=== PATIENT | female | born 1940 | race Caucasian/White ===

== ENCOUNTER 2016-12-06 01:45 | Observation (INO) ==
--- NOTE | 2016-12-06 01:54 | ED EKG INTERP ---
This chart was entered by Priscilla Lackey Scribe, acting as scribe for Wong Turner MD. EKG Interpretation - EKG Time of EKG reading by physician:: 01:46 EKG Read and Signed by:: Wong Turner EKG Interpretation (*Must complete 3 of following elements*): Abnormal Rate: 79 Rhythm: normal sinus rhythm Rock: normal QRS: normal NM Interval: normal ST Wave: non-specific ST changes (ST & T wave abnormality, consider inferolateral ischemia) Comments: anterior infarct, age undetermined Attestation - Physician/ REBECCA Attestation Patient care was provided by Advanced Practice Provider:: No The physician spent face to face time with patient:: Yes Advanced Practice Provider documentation review:: Supervising physician onsite and consulted in the evaluation and care of this patient. The physician did have a face to face encounter with the patient. This chart was documented by the indicated scribe, (Priscilla Lackey Scribe) and accurately reflects the services I performed and decisions made by me, Wong Turner MD, as attested by the provider's signature.
--- NOTE | 2016-12-06 02:00 | EKG Report ---
Test Performed on : 12/06/2016 01:46:42 AM Test Reason : CHEST PAIN Blood Pressure : / mmHG Vent. Rate : 079 BPM Atrial Rate : 079 BPM P-R Int : 170 ms QRS Dur : 098 ms QT Int : 398 ms P-R-T Axes : 065 031 179 degrees QTc Int : 456 ms Normal sinus rhythm. Anterior infarct (cited on or before 10-JUL-2015) ST \T\ T wave abnormality, consider inferolateral ischemia Abnormal ECG When compared with ECG of 10-JUL-2015 02:28, ST now depressed in Lateral leads Unconfirmed Result
[2016-12-06 02:16] LABS: BASO% 0.2 % (0.0-0.8); EOS# 0.17 X1000 (0.0-0.7); EOS% 3.8 % (0.0-10.0); HEMATOCRIT 26.5 % (37.0-47.0); HEMOGLOBIN 8.8 g/dL (12.0-16.0); IMM GRAN# 0.02 X1000 (0.0-0.04); IMM GRAN% 0.4 % (0.0-0.5); LYMPH# 1.08 X1000 (1.2-3.4); LYMPH% 24.2 % (20.5-51.1); MANUAL DIFF NEEDED? NO; MCH 30.7 PG (27-31); MCHC 33.2 g/dL (33-37); MCV 92.3 FL (81-99); MONO# 0.27 X1000 (0.11-0.59); MPV 10.5 FL (7.4-10.4); NEUT% 65.4 % (42.2-75.2); PLT 195 X1000 (130-400); RBC 2.87 XMIL (4.2-5.4)
[2016-12-06 02:33] LABS: ALBUMIN 4.3 g/dL (3.5-5.0); MAGNESIUM 1.5 mg/dL (1.5-2.7); POTASSIUM 4.6 mmol/L (3.5-5.1); TOTAL BILIRUBIN 0.4 mg/dL (0.20-1.00); TOTAL PROTEIN 7.2 g/dL (6.3-8.3)
[2016-12-06 02:42] LABS: INR 0.91 (0.86-1.15)
[2016-12-06 02:43] LABS: PTT PL 23.5 Seconds (22.6-43.9)
--- NOTE | 2016-12-06 02:48 | PROVIDER DOCUMENTATION ---
This chart was entered by Pirscilla Lackey Scribe, acting as scribe for Wong Turner MD. HPI-Chest Pain - General Chief Complaint: Chest Pain Stated Complaint: chest pain Time Seen by Provider: 12/06/16 01:46 Source: patient, EMS Allergies/Adverse Reactions: Patient Allergies Allergy/AdvReac Type Severity Reaction Status Date / Time No Known Allergies Allergy Verified 12/06/16 02:02 Home Medications: Home Medication List Medication Instructions Recorded Confirmed Last Taken Type Metformin E.r. [Glucophage Xr] 500 mg PO BID 07/10/15 12/06/16 Unknown History ATORVAstatin [Lipitor] 1 tab PO DAILY 12/06/16 12/06/16 Unknown History Aspirin [Aspirin EC] 81 mg PO DAILY 12/06/16 12/06/16 Unknown History Carvedilol [Coreg] 1 tab PO BID 12/06/16 12/06/16 Unknown History Citalopram [Celexa] 1 tab PO DAILY 12/06/16 12/06/16 Unknown History Isosorb Dinit/Hydralazine HCl 1 tab PO BID 12/06/16 12/06/16 Unknown History [Bidil Tablet] Potassium Chloride 20 meq PO DAILY 12/06/16 12/06/16 Unknown History Sacubitril/Valsartan [Entresto 49 1 tab PO BID 12/06/16 12/06/16 Unknown History mg-51 mg Tablet] Spironolactone [Spironolactone] 1 tab PO DAILY 12/06/16 12/06/16 Unknown History Ticagrelor [Brilinta] 1 tab PO BID 12/06/16 12/06/16 Unknown History - History of Present Illness-CP Nature of Presenting Problem: Patient is a 76 year old female with history of DE x2, defibrillator, diabetes, and hypertension who presents in the ED via EMS for chest pain. She states she had a sudden onset of an indigestion-like chest pain approximately 3 hours prior to arrival in ED. EMS states patient was given four 81mg aspirin en route to the ED as well as IV fluids, and states patient's pain improved after the aspirin (initially 8/10 to a 6/10). EMS also states patient' s glucose was 198 per finger stick en route. Patient denies being a smoker and denies any other symptoms. Location: reports: substernal Chest Pain Radiation: reports: no radiation Quality of Pain: reports: indigestion Severity in ED: moderate Onset/Duration: abrupt, 1-3 hours ago Timing: still present, improving Context/Activities at Onset: reports: rest Modifying Factors: improves with: nothing Associated Symptoms: reports: denies symptoms Nitro Today/Relief: no nitro taken today Aspirin Treatment Today: 81 mg x 4, provided by EMS Prior Chest Pain/Cardiac Workup: reports: cardiac cath, other (history of two MIs) Similar Symptoms Previously?: Yes (hx of DE x2) Recently Seen Here or By Another Healthcare Provider: No Review of Systems - Adult - REVIEW OF SYSTEMS - ADULT Constitutional: reports: no symptoms reported Eyes: reports: no symptoms reported Ears, Nose, Mouth & Throat: reports: no symptoms reported Cardiovascular: reports: chest pain Respiratory: reports: no symptoms reported Gastrointestinal: reports: no symptoms reported Genitourinary: reports: no symptoms reported Musculoskeletal: reports: no symptoms reported Integumentary: reports: no symptoms reported Neurological: reports: no symptoms reported Psychiatric: reports: no symptoms reported Endocrine: reports: no symptoms reported Hematologic/Lymphatic: reports: no symptoms reported Allergic/Immunologic: reports: no symptoms reported All Other Systems: Reviewed and Negative Past History - Adult - PAST MEDICAL HISTORY-ADULT Review of Records: reports: Old Records Reviewed, Nursing Assessment Review, Medications Reviewed Major Childhood Illnesses: reports: denies history Cardiovascular: reports: cardiac disease, HTN, hyperlipidemia, DE (x2) Respiratory: reports: denies history Gastrointestinal: reports: denies history Genitourinary: reports: denies history Musculoskeletal: reports: denies history Neurological: reports: denies history Psychiatric: reports: denies history Endocrine/Immune: reports: Diabetes Other Conditions: reports: denies history - PRIOR SURGERIES/PROCEDURES Surgical/Procedure History: reports: joint replacement, other (cardiac bypass, defibrillator) - IMMUNIZATION STATUS Childhood Immunizations: See Nurse Assessment Flu Vaccine: See Nurse Assessment - FAMILY HISTORY Family History: reviewed, not pertinent - SOCIAL HISTORY Smoking: denies Substance Use: none/never Alcohol Use Frequency: never Living Situation: alone Physical Exam-General - PHYSICAL EXAM-ADULT Initial Vital Signs Reviewed: Yes - CONSTITUTIONAL General Appearance: alert, no apparent distress - EYES Eyes: PERRL/EOMI, pink conjunctivae - HEAD, EARS, NOSE, MOUTH & THROAT HENMT: normocephalic/atraumatic, moist mucous membranes - NECK Neck: non-tender, full range of motion, supple, normal inspection - RESPIRATORY Respiratory: chest non-tender, lungs clear, normal breath sounds, no pleuratic chest pain, no respiratory distress, no accessory muscle use - CARDIOVASCULAR Cardiovascular: normal peripheral pulses, regular rate, rhythm, no edema, no gallop, no JVD, no murmur - GASTROINTESTINAL (ABDOMEN) Abdominal Exam: non tender, soft, no organomegaly, no pulsatile mass - LYMPHATIC Lymphatic: no adenopathy - MUSCULOSKELETAL Back Exam: normal inspection, no CVA tenderness, no vertebral tenderness Extremity: normal range of motion, non-tender, normal inspection, no pedal edema , no calf tenderness, normal capillary refill, pelvis stable - SKIN Integumentary: normal color, normal turgor, warm/dry - NEUROLOGIC Neurologic: grossly normal, no motor/sensory deficits - PSYCHIATRIC Psych/Mental Status: normal mood/affect, oriented x 3 Progress - PLAN OF CARE/RESULTS Progress/Plan/Lab Results: Vital Signs - 8 hr 12/06/16 01:47 Temperature 96 F L Pulse Rate 77 Respiratory Rate 19 Blood Pressure 122/64 O2 Sat by Pulse Oximetry 100 Laboratory Results - last 24 hr 12/06/16 12/06/16 12/06/16 02:00 02:00 02:00 WBC RBC Hgb Hct MCV MCH MCHC RDW Std Deviation Plt Count MPV Immature Gran % (Auto) Neut % (Auto) Lymph % (Auto) [place] % (Auto) Eos % (Auto) Baso % (Auto) Immature Gran # (Auto) Neut # (Auto) Lymph # (Auto) [place] # (Auto) Eos # (Auto) Baso # (Auto) PT INR APTT (Factor Assay) D-Dimer Sodium 139 Potassium 4.6 Chloride 102 Carbon Dioxide 20 L Anion Gap 17 BUN 11 Creatinine 1.1 H Estimated GFR/1.73 m2 49 BUN/Creatinine Ratio 10 Glucose 147 H Calculated Osmolality 280 Calcium 9.0 Magnesium 1.5 Total Bilirubin 0.40 AST 17 ALT 12 Alkaline Phosphatase 72 Creatine Kinase 74 Troponin T 0.011 Kcz-Q-Pohkgkilayp Pept 1934 H Total Protein 7.2 Albumin 4.3 Globulin 3.0 Albumin/Globulin Ratio 1.0 12/06/16 12/06/16 02:00 02:00 WBC 4.47 L RBC 2.87 L Hgb 8.8 L Hct 26.5 L MCV 92.3 MCH 30.7 MCHC 33.2 RDW Std Deviation 13.8 Plt Count 195 MPV 10.5 H Immature Gran % (Auto) 0.4 Neut % (Auto) 65.4 Lymph % (Auto) 24.2 [place] % (Auto) 6.0 Eos % (Auto) 3.8 Baso % (Auto) 0.2 Immature Gran # (Auto) 0.02 Neut # (Auto) 2.92 Lymph # (Auto) 1.08 L [place] # (Auto) 0.27 Eos # (Auto) 0.17 Baso # (Auto) 0.01 PT 13.0 INR 0.91 APTT (Factor Assay) 23.5 D-Dimer 0.83 H Sodium Potassium Chloride Carbon Dioxide Anion Gap BUN Creatinine Estimated GFR/1.73 m2 BUN/Creatinine Ratio Glucose Calculated Osmolality Calcium Magnesium Total Bilirubin AST ALT Alkaline Phosphatase Creatine Kinase Troponin T Ewi-[id number]-Dmnrkxxcngn Pept Total Protein Albumin Globulin Albumin/Globulin Ratio Orders Category Date Time Status Cardiac Monitoring DIRECTED Care 12/06/16 01:48 Active Oxygen Therapy- ED Nursing DIRECTED Care 12/06/16 01:48 Active Saline Loc NOW Care 12/06/16 01:48 Active CHEST-PORTABLE [RAD] Stat Exams 12/06/16 01:52 Taken CBC WITH ELECTRONIC DIFF [HEME] Stat Lab 12/06/16 02:00 Completed CK PROFILE [SP CHEM] Stat Lab 12/06/16 02:00 Completed COMPREHENSIVE METABOLIC PANEL [CHEM] Stat Lab 12/06/16 02:00 Completed D-DIMER PL [COAG] Stat Lab 12/06/16 02:00 Completed MAGNESIUM [CHEM] Stat Lab 12/06/16 02:00 Completed PRO B-NATRIURETIC PEPTIDE Stat Lab 12/06/16 02:[address]IME WITH INR PL [COAG] Stat Lab 12/06/16 02:[address] [COAG] Stat Lab 12/06/16 02:00 Completed TROPONIN T Stat Lab 12/06/16 02:00 Completed Enoxaparin 1 mg/kg [Lovenox 1 mg/kg] Med 12/06/16 03:20 Once 1 each SUBQ NOW ONE EKG [EKG] Stat Ther 12/06/16 01:48 Draft Result Diagrams: 12/06/16 02:00 12/06/16 02:00 Departure - Departure Date of Disposition Decision: 12/06/16 Time of Disposition Decision: 03:20 DIAGNOSIS: Elevated d-dimer Chest pain Qualifiers: Chest pain type: unspecified Qualified Code(s): R07.9 - Chest pain, unspecified Disposition: ADMITTED INPATIENT 09 Certified Medical Emergency: Emergent Condition: Stable Additional Freetext Instructions: ED Follow Up Instructions: You have been treated by a care provider in the Emergency Department. These instructions are being provided to you so you can have an understanding of how to care for yourself upon discharge. Upon discharge from the Emergency Department, you are responsible for making arrangements for follow-up care by a physician of your choice. Take all prescribed medications as directed. Return to the Emergency Department immediately for any new or worsening symptoms. You may call the Physician Referral phone number at [phone] to obtain a list of Physicians who are taking new patients. Referrals and Follow-Ups: None,PCP [Primary Care Provider] - - Critical Care Note This patient required my direct & personal management of CC.: No Attestation - Physician/ REBECCA Attestation Patient care was provided by Advanced Practice Provider:: No The physician spent face to face time with patient:: Yes Advanced Practice Provider documentation review:: Supervising physician onsite and consulted in the evaluation and care of this patient. The physician did have a face to face encounter with the patient. This chart was documented by the indicated scribe, (Priscilla Lackey Scribe) and accurately reflects the services I performed and decisions made by me, Wong Turner MD, as attested by the provider's signature.
[2016-12-06] MEDS ORDERED: LOVENOX 1 MG/KG SUBQ ONE (03:20)
[2016-12-06] MEDS ORDERED: LOVENOX ONE (04:10)
--- NOTE | 2016-12-06 04:39 | EKG Report ---
Test Performed on : 12/06/2016 03:26:15 AM Test Reason : pain Blood Pressure : / mmHG Vent. Rate : 068 BPM Atrial Rate : 068 BPM P-R Int : 170 ms QRS Dur : 082 ms QT Int : 402 ms P-R-T Axes : 046 -04 248 degrees QTc Int : 427 ms Normal sinus rhythm. Anterior infarct (cited on or before 10-JUL-2015) T wave abnormality, consider lateral ischemia Abnormal ECG When compared with ECG of 06-DEC-2016 01:46, (Unconfirmed) ST no longer depressed in Lateral leads Unconfirmed Result
[2016-12-06] MEDS: MORPHINE IV PRN ×2 (06:16→12:30)
--- NOTE | 2016-12-06 10:44 | Diag Imaging Result Doc PS360 ---
CHEST-PORTABLE - 12/06/2016 INDICATION: chest pain TECHNIQUE: COMPARISON: 07/10/2015 FINDINGS: Stable pacemaker and sternotomy changes. Heart size and pulmonary vascularity is top normal. No focal infiltrates, pneumothorax, or pleural effusion. IMPRESSION: No acute disease. Electronically signed by James Trotter 12/06/2016 10:42 AM
--- NOTE | 2016-12-06 13:58 | HISTORY AND PHYSICAL ---
MANAGER LAUNDRY: Dr. Rocha in [place]. CHIEF COMPLAINT: Chest pain. HISTORY OF PRESENT ILLNESS: This is a 76-year-old female with a history of ME with sudden status post defibrillator placement who presented to the emergency room complaining of a right-sided chest pain. On presentation she stated that the chest pain was more midsternal over to the right breast. It did feel like indigestion burning type pain. At intervals she would have a sharp pain that lasted a few seconds, spontaneously resolving each time. She states that at the time of interview that the pain has moved and is more in the right upper clavicular and axillary level. It is not reproduced by palpation. It is not exacerbated by movement, cough or deep breath although at present she is not having pain. She does state that she had no prior pain with her prior ME that it was found after sudden . She states that she was unable to have a coronary artery bypass graft or be stented due to small vessels that she has been treated medically. The patient did state that she traveled approximately 2 weeks ago. She drove up to [place] and then back within the same week having very few rest stops. She did state that right after driving that she did have some leg pain although it is primarily her thighs. She denies any prior PE, DVT. PAST MEDICAL HISTORY: ME, sudden status post defibrillator placement, diabetes mellitus. PAST SURGICAL HISTORY: Coronary artery bypass graft, total hip, bilateral shoulder surgery. SOCIAL HISTORY: She denies tobacco or illicit drug use. She does have occasional social alcohol. Of note, the patient is blind. ALLERGIES: No known drug allergies. HOME MEDICATIONS: Celexa, Brilinta, Entresto, spironolactone, potassium chloride, aspirin, BiDil, Coreg, Glucophage and Lipitor. REVIEW OF SYSTEMS: 14-point review of systems is discussed with patient with pertinent positives stated in HPI. She denied palpitations, dizziness, syncope, any shortness of breath, cough, fever, chills, PND, orthopnea, nausea, vomiting, diarrhea, constipation, black or bloody vomitus, black or bloody stools, hematuria, dysuria, frequency, urgency. PHYSICAL EXAMINATION: GENERAL: This is a 76-year-old female who is lying in the bed in no distress. VITAL SIGNS: Blood pressure is 100/40 with heart rate 70, respirations are 16, temperature is 98.6 degrees oral with room air saturation 100%. CARDIOVASCULAR: Regular rate and rhythm. S1 and S2 appreciated. PULMONARY: Breath sounds are clear. No increased work of breathing noted. GASTROINTESTINAL: Abdomen soft, nontender, nondistended with bowel sounds in all 4 quadrants. BACK: No CVAT. No spine tenderness. MUSCULOSKELETAL: Good range of motion of joints. EXTREMITIES: No clubbing, cyanosis or edema. Calves are nontender. Pulses are palpable x4. NEUROLOGIC: She is alert, oriented x3 with cranial nerves 2-12 grossly intact. DIAGNOSTICS: WBC is 4.4 with a hemoglobin of 8.8, hematocrit 26.5, platelets of 195,000. Sodium is 139, potassium 4.6, BUN 11, creatinine 1.1 with a glucose of 147 troponin. Troponin was 0.01 at 2 a.m., 0.061 at 4 a.m., at 9 her troponin 0.7. D-dimer 0.83. Chest x-ray revealed no acute disease. ASSESSMENT AND PLAN: 1. Chest pain. Causes could be multifactorial. She does have a history of coronary artery disease. She did state with her last myocardial infarction that vessels were too small to re- graft and or to be stented therefore she has been treated medically. She also has had elevated D-dimer. She has had recent travel with leg pain to follow. Will continue to trend enzymes, will consult cardiology as troponin had elevated, will continue with a V/Q scan to look for a pulmonary embolus. 2. Anemia. The patient is blind so that she can not state if she had any black or bloody stools. We will get stool for Hemoccult and trend her levels. 3. Coronary artery disease, will identify her home medications and continue as appropriate. 4. Diabetes mellitus. We will hold her metformin. Will continue home medications. Will add pattern blood glucose with sliding scale insulin. 5. Hyperlipidemia aware. Further treatments pending hospital course. Dictated by MAURA Fiore for Maurilio Parks MD cc: MAURA Fiore MD [facility]
--- NOTE | 2016-12-06 14:40 | Diag Imaging Result Doc PS360 ---
LUNG SCAN / VQ - 12/06/2016 INDICATION: chest pain,elevated d-dimer TECHNIQUE: 31.5 mCi of DTPA was used for inhalation. 6.1 mCi of MAA was used for injection. COMPARISON: Chest x-ray 12/06/2016 FINDINGS: There is normal localization pattern of both radiotracer. No perfusion defects. IMPRESSION: Negative for pulmonary embolism. Electronically signed by James Trotter 12/06/2016 2:37 PM
--- NOTE | 2016-12-06 16:07 | CONSULTATION ---
DATE OF CONSULTATION: 12/06/2016 REASON FOR CONSULTATION: Cardiology was consulted for non-Q-wave myocardial infarction, coronary artery disease, stent placement in the past. HISTORY OF PRESENT ILLNESS: Ms. Traci Osorio is a 76-year-old -[place] lady with history of diabetes, diabetic retinopathy, myocardial infarction in the past, status post stent placement and AICD placement. Comes in with complaints of chest pain. She describes the chest pain as on her right breast and subsequently it was a midsternal chest pain which she describes as significant, and this had been described as burning in character. She has had this intermittently over the last few days. Symptoms worsened. She came to the emergency room, was admitted. At the time of my examination, patient was pain free. She has had stent placement in the distant past and as well as at [facility] within the last year and a half. She has a dry kiln burner in [place] who she would like to follow up with. She has also been traveling from [place], traveled two weeks ago and given this, she was also set up for a V/Q scan to rule out pulmonary embolism. REVIEW OF SYSTEMS: A 14-point review of system was done. GI System: There is no history of nausea, vomiting, diarrhea. There is no history of hematemesis or melena. Central nervous system: No focal weakness to suggest a CVA or TIA. System: There is no dysuria or hematuria. Respiratory System: There is no history of hemoptysis. PAST MEDICAL HISTORY: 1. Myocardial infarction. 2. Status post stent placement. 3. Left ventricular dysfunction with the automatic implantable cardioverter-defibrillator placement. 4. Repeat coronary angiogram and stent placement within the last year and a half requiring stent placement. 5. Bilateral shoulder surgery. 6. Total hip surgery. 7. Diabetes mellitus. 8. Diabetic retinopathy. HOME MEDICATIONS/CURRENT MEDICATIONS: 1. Aspirin 81 mg a day. 2. Atorvastatin 40. 3. Coreg 3.125 mg twice daily. 4. Celexa 20. 5. Hydralazine 3.75 mg p.o. b.i.d. 6. Insulin glargine 20 units subcutaneous at bedtime. 7. Isosorbide dinitrate 20 b.i.d. 8. Potassium supplements. 9. Her home medications included Entresto 45/50, 1 tablets twice a day, spironolactone 25 mg daily, Brilinta 90 mg, 1 tablet twice daily. ALLERGIES: She is not known to be allergic to any medications. PHYSICAL EXAMINATION: Vital Signs: Blood pressure was 134/58. Cardiovascular System: Normal jugular venous pressure. There was no thyromegaly. There is no carotid bruit. First and second heart sounds were heard. There was soft systolic murmur. Respiratory System: Normal air entry. There were no crepitations or rhonchi. Abdomen: Soft, nontender. There was no guarding or rigidity. Bowel sounds were heard. Central nervous system: Alert, moving all 4 extremities. Patient is legally blind. DIAGNOSTICS: 1. Chest x-ray was unremarkable. 2. V/Q scan was done to rule out a pulmonary embolism which was negative. LABORATORY EXAMINATION: Revealed sodium 139, potassium 4.6, BUN 11, creatinine 1.1. Initial CK- MB and troponin were normal. Subsequent troponin was 0.061, 0.704 and 1.020. ProBNP 1934. ASSESSMENT AND PLAN: 1. Ms. Traci Osorio is a 76-year-old black lady who has diabetes, myocardial infarction in the past, stent placement within the year and a half at [place], stent placement in the distant past following a myocardial infarction, AICD placement, heart failure and is legally blind. Comes with complaints of having had indigestion-like symptoms for the last few days and retrosternal chest burning discomfort. Patient has non-Q-wave myocardial infarction. As far as medications are concerned, would recommend restarting her on all her home medications, including Brilinta, Aldactone and Crestor. 2. Given a non-Q-wave myocardial infarction. I have recommended that she be transferred to facility for coronary intervention. Patient's family would like her to be transferred to [place]. 3. We will get an echocardiogram to assess cardiac and valvular function. 4. At the present time she is pain-free. The electrocardiogram revealed normal sinus rhythm, nonspecific ST T changes. cc: Trip Wilkinson MD
[2016-12-06] MEDS: LOVENOX SUBQ SCH (16:29)
[2016-12-06 16:33] LABS: HEMATOCRIT 25.4 % (37.0-47.0); HEMOGLOBIN 8.5 g/dL (12.0-16.0); MCH 31.1 PG (27-31); MCHC 33.5 g/dL (33-37); MPV 10.5 FL (7.4-10.4); RBC 2.73 XMIL (4.2-5.4)
--- NOTE | 2016-12-06 19:29 | PROGRESS NOTE ---
DATE: 12/06/2016 Ms Osorio's troponins continue to rise. She was seen by Cardiology and she is having a non-Q-wave MD. Echocardiogram was done at the bedside with Dr. Wilkinson present. 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 with her Brilinta and baby aspirin. Dr. Wilkinson recommended that the patient be transferred to [place] to follow cardiology. The patient became upset, as did the daughter who is in [place], as they wanted the patient transferred down to [place] to be close to her daughter , as well she has an established template clerk Ely Rocha MD. This is at [facility]. We did explain to the patient that we could not just put her in the ambulance and send her down to [place] that there were protocols that we needed to follow. When she discussed this with the daughter the daughter stated that she would just come get her and sign her out AMA and take her to [place]. The nursing staff informed the daughter that her mother was having a MD as well as a left ventricle thrombus and it is very dangerous for her to check her out the hospital, put her in a car drive 4 hours down to the hospital. She has a very high chance of . In the meantime Dr. Parks has been trying for approximately 4 hours to reach the patient's template clerk in [place] to see about accepting a transfer per the patient and daughter's request. He called the number given by the daughter, [phone]. He was redirected to the hospital for hospitalist as Dr. Torrez does not admit himself. The patient and her daughter are aware of this. After many discussions the patient's daughter understands the risk of her mother having a stroke or dying en route, if she goes by personal vehicle no treatment can be administered. Therefore the patient and daughter have decided to leave the patient here for tonight. The daughter states she will go to the template clerk Dr. Rocha's office in the morning at 8 o'clock, discuss this with them and we did give them the number to call to the hospital or to the floor to reach Dr. Parks and it can be decided between the template clerk, Dr. Parks, the daughter, the patient if she can in fact be transferred to [place]. They do understand that we are trying to do what is safest and the best interest of Ms Osorio. Dictated by MAURA Fiore for Maurilio Parks MD cc: MAURA Fiore MD [facility]
[2016-12-06] MEDS ORDERED: LANTUS INSULIN (PARKWAY) SUBQ SCH (21:00)
[2016-12-06] MEDS ORDERED: ISOSORB DINIT PO SCH (21:00)
[2016-12-06] MEDS ORDERED: HYDRALAZINE HCL PO SCH (21:00)
[2016-12-06] MEDS ORDERED: ENTRESTO 49 MG-51 MG TABLET PO SCH (21:00)
[2016-12-06] MEDS: ISORDIL PO SCH (22:23)
[2016-12-06] MEDS: APRESOLINE PO SCH (22:24)
[2016-12-06] MEDS: COREG PO SCH (22:25)
[2016-12-06] MEDS: BRILINTA PO SCH (23:35)
[2016-12-07] MEDS: LOVENOX SUBQ SCH ×2 (03:33→15:25)
[2016-12-07 06:12] LABS: ALBUMIN 3.7 g/dL (3.5-5.0); CALCIUM 8.9 mg/dL (8.8-10.2); POTASSIUM 4.4 mmol/L (3.5-5.1); TOTAL BILIRUBIN 0.6 mg/dL (0.20-1.00); TOTAL PROTEIN 7.2 g/dL (6.3-8.3)
[2016-12-07 06:16] LABS: HEMOGLOBIN 8.7 g/dL (12.0-16.0); MCH 30.9 PG (27-31); MCHC 33.5 g/dL (33-37); MCV 92.2 FL (81-99); MPV 10.6 FL (7.4-10.4); RBC 2.82 XMIL (4.2-5.4)
[2016-12-07] MEDS: COREG PO SCH (08:44)
[2016-12-07] MEDS: ISORDIL PO SCH (08:44)
[2016-12-07] MEDS: APRESOLINE PO SCH (08:44)
[2016-12-07] MEDS ORDERED: CELEXA PO SCH (09:00)
[2016-12-07] MEDS ORDERED: ASPIRIN EC PO SCH (09:00)
[2016-12-07] MEDS ORDERED: ALDACTONE PO SCH (09:00)
[2016-12-07] MEDS ORDERED: KLOR-CON PO SCH (09:00)
[2016-12-07] MEDS: BRILINTA PO SCH (09:03)
--- NOTE | 2016-12-07 09:27 | ECHO REPORT ---
ORDER DATE: 12/06/2016 ECHOCARDIOGRAPHIC MEASUREMENTS: 1. Interventricular septum 0.8, left ventricular posterior wall 0.7, diastolic diameter 5.6, left atrium 4.1, aorta 2.7. 2. A mildly dilated left ventricle with severely reduced systolic function. Estimated ejection fraction of 20-25%. There is severe hypokinesis. That is thrombus noted in the left ventricular apex. 3. Aortic valve leaflets are trileaflet. Mitral valve was normal. Tricuspid valve was normal. Pulmonic valve was normal. 4. Pacing leads noted in the right chamber. 5. There is no aortic stenosis or regurgitation. There is mild mitral regurgitation. Moderate tricuspid regurgitation. Peak velocity across the tricuspid valve was 3.8 m/sec. Pulmonary artery systolic pressure of 70 mmHg. There is pulmonary arterial hypertension. 6. There is no pericardial effusion. cc: MD Nereida Mccoy CRNP
[2016-12-07] MEDS ORDERED: NS 500 ML ONE (15:57)
[2016-12-07] MEDS ORDERED: TYLENOL PO ONE (16:02)
[2016-12-07] MEDS ORDERED: BENADRYL PO ONE (16:02)
[2016-12-07 19:01] VITALS: BP 129/58
--- NOTE | 2016-12-07 20:21 | PROGRESS NOTE ---
DATE: 12/07/2016 SUBJECTIVE: Patient without any new complaints. She does state that she is still having some chest pain. States she is still having some shortness of breath. OBJECTIVE: Vital Signs: Reviewed. She is afebrile. Blood pressure is stable. Temperature 97 degrees, pulse 88, respiratory rate 18, blood pressure 120/47. General: Patient is awake, alert. She is in no distress. HEENT: Normocephalic, atraumatic. Neck: Supple. CARDIOVASCULAR: Regular rate. Chest: Clear. Abdomen: Soft. LABORATORY: Troponin continues to elevate, currently at 1.1. ASSESSMENT: 1. Acute non-Q-wave myocardial infarction. 2. Chronic anemia. Patient was transfused 1 unit. 3. Known coronary artery disease. It certainly appears as though she is having another myocardial infarction. 4. Diabetes. 5. Hyperlipidemia. PLAN: Certainly would prefer patient to be transferred to [facility], although she and the family declined this. They want to go to [place], [place] where her primary grid inspector, Dr. Rocha is located. We will attempt to contact him. ADDENDUM: Patient's primary grid inspector, Dr. Rocha, was contacted. He does agree to accept her in transfer. However, the ambulance service notes that it will be close to 2400 dollars to transfer and this is payable up front. At that point, the daughter declined and states that she was coming to get Ms. Osorio to transfer her herself. We will await her arrival. cc: Maurilio Parks MD
[2016-12-07] MEDS ORDERED: LIPITOR PO SCH (21:00)
--- NOTE | 2016-12-20 18:12 | DISCHARGE SUMMARY ---
ADMISSION DATE: 12/06/2016 DISCHARGE DATE: 12/07/2016 DISCHARGE DIAGNOSES: 1. Acute non Q myocardial infarction. 2. Chronic anemia, patient was transfused 1 unit. 3. Known coronary artery disease. 4. Diabetes. 5. Hyperlipidemia. CONSULTATIONS: Cardiology. PROCEDURES: None. BRIEF HOSPITAL COURSE: The patient was admitted to the hospital. She was noted to be having an acute UT. We offer transferred to [place], but as noted on previous notes, the patient declined stating that she wanted to get transferred to [place]. After these arrangements were made, then patient was transferred to her practice advisor in [place]. No other discharge plans were made. cc: Maurilio Parks MD
== END 2016-12-07 19:50 | disposition left against medical advice (07) ==
LOC: P.ED 01:45 → P.MEDSURG 01:45
PROVIDERS: ATTEND Family Medicine